=== PATIENT | male | born 1995 | race Caucasian/White ===

== ENCOUNTER 2025-03-05 18:27 | Emergency (ER) | payer MEDICAID ==
[2025-03-05 18:38] VITALS: TEMP 98.7
--- NOTE | 2025-03-05 19:23 | ERPHSYRPT ---
- History of Present Illness Time Seen by Provider: 03/05/25 19:17 Source: patient Exam Limitations: no limitations Patient Subjective Stated Complaint: pt co dribbling with urination this evening, and feels pressure to void, last vlid he noticed blood in urine. no fever Triage Nursing Assessment: pt alert, walked in, resp easy, skin w/d/p, abd soft, no cough, moves all ext well Physician History: Patient is a 30-year-old male no significant past medical history presents to our ED for evaluation of dribbling with urinary urgency and observation of what appeared to be blood in urine. Symptoms started today. No trauma no fever. No flank pain no nausea no vomiting no diarrhea no rash. Symptoms are mild to moderate in intensity. No specific worsening or improving factors. Patient otherwise feels well. She voices no other complaints or concerns at this time. Portions of this note were created with voice recognition technology. There may be grammatical, spelling, punctuation or sound alike errors Timing/Duration: today Severity: moderate Modifying Factors: Improves With: nothing Associated Symptoms: denies symptoms Allergies/Adverse Reactions: No Known Drug Allergies Allergy (Unverified 03/05/25 18:35) Hx Tetanus, Diphtheria Vaccination/Date Given: No Hx Influenza Vaccination/Date Given: No Hx Pneumococcal Vaccination/Date Given: No Immunizations Up to Date: Yes Travel Risk - International Travel Have you traveled outside of the country in past 3 weeks: No - Emerging Infectious Disease Are you exhibiting symptoms associated with any current EIDs: No - Review of Systems All Other Systems: Reviewed and Negative - Past Medical History Pertinent Past Medical History: Yes Other Medical History: 2024- not taking meds for - Past Surgical History Past Surgical History: No - Social History Smoking Status: Never smoker Exposure to second hand smoke: No Drug Use: none - Social Determinants of Health Will the patient participate in the screening: Declined to provide - Nursing Vital Signs Nursing Vital Signs: Initial Vital Signs Temperature 98.7 F 03/05/25 18:37 Pulse Rate 87 03/05/25 18:37 Respiratory Rate 18 03/05/25 18:37 Blood Pressure 131/86 03/05/25 18:37 O2 Sat by Pulse Oximetry 98 03/05/25 18:37 Pain Scale Pain Intensity 3 - Physical Exam General Appearance: no apparent distress, alert Eye Exam: PERRL/EOMI, eyes nml inspection Ears, Nose, Throat Exam: normal ENT inspection, moist mucous membranes Neck Exam: normal inspection, full range of motion Respiratory Exam: normal breath sounds, lungs clear, No respiratory distress Cardiovascular Exam: regular rate/rhythm, normal heart sounds, normal peripheral pulses Gastrointestinal/Abdomen Exam: soft, normal bowel sounds, No tenderness, No mass Back Exam: normal inspection, normal range of motion, No CVA tenderness, No vertebral tenderness Extremity Exam: normal inspection, normal range of motion, pelvis stable Neurologic Exam: alert, oriented x 3, cooperative, normal mood/affect, sensation nml, No motor deficits Skin Exam: normal color, warm, dry, No rash Lymphatic Exam: No adenopathy SpO2 Interpretation: normal SpO2: 98 O2 Delivery: Room Air - Course Nursing assessment & vital signs reviewed: Yes - CT Exams Abdomen/Pelvis CT Interpretation: Tele-radiologist Report (No comps. 1 mm urinary bladder stone, fatty liver. 16 cm splenomegaly and minimal sigmoid diverticulosis oth erwise normal abdomen and pelvis) Ordered Tests: Active Orders 24 hr Category Date Time Status ABDOMEN AND PELVIS W/0 CONTRAS [CT] Stat Exams 03/05/25 19:25 Taken CULTURE,URINE Stat Lab 03/05/25 19:27 Received UA W/RFX UR CULTURE Stat Lab 03/05/25 19:27 Completed Medication Summary Generic Name Dose Route Start Last Admin Trade Name Freq PRN Reason Stop Dose Admin Ciprofloxacin 500 mg 03/05/25 22:00 03/05/25 20:09 Ciprofloxacin 500 Mg Tablet PO 04/04/25 21:59 500 mg BID RONI Administration Discontinued Medications Generic Name Dose Route Start Last Admin Trade Name Freq PRN Reason Stop Dose Admin Acetaminophen 975 mg 03/05/25 20:10 03/05/25 20:10 Acetaminophen 325 Mg Tablet PO 03/05/25 20:11 975 mg STAT ONE Administration Acetaminophen Confirm 03/05/25 20:08 Acetaminophen 325 Mg Tablet Administered 03/05/25 20:09 Dose 975 mg .ROUTE .[facility] Lab/Rad Data: Laboratory Results 03/05/25 Range/Units 19:27 Urine Color Red A (Yellow) Urine Appearance Turbid A (Clear) Urine pH 5.5 (4.6-8.0) Ur Specific Prue 1.025 (1.005-1.030) Urine Protein 30 (Negative) Urine Glucose (UA) Negative (Negative) mg/dL Urine Ketones Negative (Negative) Urine Blood Large A (Negative) Urine Nitrite Negative (Negative) Urine Bilirubin Small A (Negative) Urine Urobilinogen 1.0 A (0.2) mg/dL Ur Leukocyte Esterase Small A (Negative) U Hyaline Cast (Auto) NONE SEEN (0-2) /LPF Urine Microscopic RBC >100 A (0-5) /HPF Urine Microscopic WBC 6-10 A (0-5) /HPF Ur Epithelial Cells None Seen (None Seen) /HPF Urine Bacteria None Seen (None Seen) /HPF Urine Culture Reflexed YES (NO) - Progress Progress: improved Progress Note: Patient is a 30-year-old male no significant past medical history presents to our ED for evaluation of dribbling with urinary urgency and observation of what appeared to be blood in urine. UA significant for urinary tract infection. Patient received an oral dose of ciprofloxacin in our ED. A prescription for the same was forwarded to patient's pharmacy. CT scan reveals a bladder calculus. Patient likely had an obstructive kidney stone that passed. We are not sure what side the stone came from however patient was given a urine strainer. Patient advised to recover the stone and provided to his primary care doctor so they can study the composition and hopefully minimize the risk of another stone occurring. Patient currently asymptomatic. Mother at bedside. They voiced no other complaints or concerns at this time. History obtained from patient and his mother who is at the bedside. Differential diagnosis includes ureterolithiasis, UTI, trauma, intestinal colic/constipation Portions of this note were created with voice recognition technology. There may be grammatical, spelling, punctuation or sound alike errors Patient initially declined pain medication. However he later requested analgesics for burning sensation in his penis. Complexity of problems addressed is moderate acute complicated. No critical care time. Complexity of data reviewed and analyzed is moderate. Test ordered chest reviewed results analyzed and correlated clinically with history and physical exam. Risk of complication and or risk of morbidity/mortality of patient management is moderate. Patient received a prescription for ciprofloxacin. Vital stable. Time spent to discharge patient is approximately 20 minutes. Plan of care established for shared decision making. No social determinants of health present to impede follow-up. Portions of this note were created with voice recognition technology. There may be grammatical, spelling, punctuation or sound alike errors 03/05/25 22:18 Counseled pt/family regarding: diagnosis, need for follow-up, rad results - Departure Departure Disposition: Home Clinical Impression: Hematuria, Urinary tract infection, Urinary bladder stone, Fatty liver, Splenomegaly, Sigmoid diverticulosis Condition: Stable Critical Care Time: No Referrals: DOCTOR,NO FAMILY [Primary Care Provider, UNKNOWN] - Follow up/PCP as directed ALEXX COOPER MD [ACTIVE STAFF, [facility]] - Follow up/PCP as directed Instructions: Blood in the urine (hematuria) in adults, Urinary tract infection - Discharge instructions Additional Instructions: Discharge/Care Plan KEI APPLE was seen on 03/05/25 in the Emergency Room. The patient was counseled regarding Diagnosis,Lab results, Imaging studies, need for follow up and when to return to the Emergency Room. Prescriptions given: Discharge Note I have spoken with the patient and/or caregivers. I have explained the patient's condition, diagnosis and treatment plan based on the information available to me at this time. I have answered the patient's and/or caregiver's questions and addressed any concerns. The patient and/or caregivers have as good understanding of the patient's diagnosis, condition and treatment plan as can be expected at this point. The vital signs have been stable. The patient's condition is stable and appropriate for discharge from the emergency department. The patient will pursue further outpatient evaluation with the primary care physician or other designated or consulting physician as outlined in the discharge instructions. The patient and/or caregivers are agreeable to this plan of care and follow-up instructions have been explained in detail. The patient and/or caregivers have received these instruction. The patient/and or caregivers are aware that any significant change in condition or worsening of symptoms should prompt an immediate return to this or the closest emergency department or call 911. Prescriptions: Ciprofloxacin [Cipro 500 MG] 500 mg PO BID 7 Days #14 tablet
[2025-03-05 19:38] LABS: Glucose, Urine Negative (Negative); Protein,Urine Dip 30 (Negative); RBC >100 /HPF (0-5)
[2025-03-05] MEDS ORDERED: Cipro 500 MG ONE (20:08)
[2025-03-05] MEDS ORDERED: TYLENOL 325 MG ONE (20:08)
[2025-03-05] MEDS: Cipro 500 MG PO SCH (20:09)
[2025-03-05] MEDS: TYLENOL 325 MG PO ONE (20:10)
[2025-03-05 21:11] VITALS: RESP 17
[2025-03-05 22:08] VITALS: BP 97/63; PULSE 68
[2025-03-05 22:09] VITALS: O2SAT 98
--- NOTE | 2025-03-06 08:51 | XRAY ---
Indication: Dribbling urination. Pain. Multiple contiguous axial images obtained through the abdomen and pelvis without contrast. Comparison: None Lung bases clear. Heart not enlarged. Noncontrasted stomach and bowel loops appear nonobstructed with normal appendix. Minimal colonic diverticulosis without diverticulitis. Mild diffuse fatty liver. Spleen is enlarged measuring 16 cm. No free fluid/air. Posterior urinary bladder demonstrates 1 mm calculus adjacent to left UVJ. No hydronephrosis/hydroureter or evidence for obstructive uropathy. Remaining liver, gallbladder, pancreas, spleen, adrenal glands, kidneys, ureters, bladder, and aorta are unremarkable for noncontrast exam. Osseous structures intact. No ventral or inguinal hernias. Impression: 1 mm urinary bladder calculus, fatty liver, splenomegaly, and colonic diverticulosis. Remaining CT abdomen/pelvis without contrast exam is negative.
== END 2025-03-05 22:21 | disposition home or self-care (01) ==
LOC: ED 18:27
DX: N39.0 Urinary tract infection, site not specified (principal); R31.9 Hematuria, unspecified; N21.0 Calculus in bladder; K76.0 Fatty (change of) liver, not elsewhere classified; R16.1 Splenomegaly, not elsewhere classified; K57.30 Diverticulosis of large intestine without perforation or abscess without bleeding